=== PATIENT | male | born 1985 | race Caucasian/White ===

== ENCOUNTER 2017-04-08 22:29 | Emergency (ER) | payer BC ==
[~2017-04-08] VITALS: Ht 185.4 cm; Wt 72.3 kg
[2017-04-08 23:11] LABS: HEMATOCRIT 44.8 % (38.0-50.0); HEMOGLOBIN 15.6 G/DL (12.5-16.6); MCH 28.7 PG (29.0-34.0); MCHC 34.8 G/DL (30.0-36.0); MCV 82.5 FL (86-99); PLATELET COUNT 311 K/uL (156-360); RBC DIS.WIDTH-SD 35.5 % (39-53); RED BLOOD COUNT 5.43 M/uL (4.00-5.50); WHITE BLOOD COUNT 13.6 K/uL (4.1-10.2)
[2017-04-08 23:19] LABS: ALBUMIN 4.7 g/dL (3.2-4.8); CHLORIDE 108 mEq/L (99-109); POTASSIUM 4.6 mEq/L (3.7-5.4); SODIUM 142 mEq/L (136-147)
[2017-04-08 23:22] LABS: GLUCOSE 128 mg/dL (70-99); TOTAL PROTEIN 7.3 g/dL (6.4-8.3)
[2017-04-08 23:24] LABS: TOTAL BILIRUBIN 0.5 mg/dL (0.0-1.0)
[2017-04-08 23:25] LABS: ALKALINE PHOSPHATASE 110 IU/L (3-129); CREATININE 1.4 mg/dL (0.6-1.3); GFR ESTIMATE (CALCULATED) > 59 mL/min/ (58.99-99999)
[2017-04-08 23:26] LABS: UREA NITROGEN (BUN) 14 mg/dL (9-23)
[2017-04-08 23:27] LABS: AST (GOT) 16 IU/L (2-34)
[2017-04-08 23:28] LABS: ALT (GPT) 19 IU/L (3-49)
[2017-04-08 23:29] LABS: LIPASE 18 U/L (1.0-51.0)
[2017-04-08 23:32] LABS: APPEARANCE CLEAR ((CLEAR)); BILIRUBIN NEGATIVE; BLOOD MODERATE; COLOR YELLOW ((YELLOW)); GLUCOSE (STRIP) NEGATIVE; KETONES NEGATIVE; LEUKOCYTES NEGATIVE; NITRITE NEGATIVE; PROTEIN (STRIP) NEGATIVE; SPECIFIC GRAVITY 1.012 (1.000-1.030); UROBILINOGEN 0.2 MG/DL (0.2-1.0)
[2017-04-08 23:36] LABS: BACTERIA NONE SEEN /HPF; CALCIUM OXALATE CRYSTALS 1+ /HPF; EPITHELIAL CELLS NONE SEEN /HPF; MUCUS TRACE /LPF; RED BLOOD CELLS 30-40 /HPF (0-5); UCUL ADDED? NO; WHITE BLOOD CELLS 0-5 /HPF (0-5)
[2017-04-09] MEDS ORDERED: ZOFRAN ODT4 MG PO (02:41)
[2017-04-09] MEDS ORDERED: FLOMAX0.4 MG PO (02:41)
[2017-04-09] MEDS ORDERED: PERCOCET 5/31 TABLET PO (02:41)
[2017-04-09 03:00] VITALS: BP 134/72
== END 2017-04-09 03:00 | disposition home or self-care (01) ==
LOC: EME 22:29
DX: N13.2 Hydronephrosis with renal and ureteral calculous obstruction (principal)
CPT/HCPCS: 74177; 80053; 81003; 83690; 85027; 99281; 99285; J1885; J2270; J2405; J3010; J7030